=== PATIENT | male | born 1950 | race Caucasian/White ===

== ENCOUNTER 2018-09-03 18:39 | Emergency (ER) | payer MEDICARE, OTHER ==
[~2018-09-03] VITALS: Ht 170.2 cm; Wt 80.1 kg
[~2018-09-03 18:39] MED LIST: MAA5
[2018-09-03 18:44] VITALS: Ht 170.2 cm; Wt 80.1 kg
[2018-09-03] MEDS ORDERED: METO-448 PO (20:41)
[2018-09-03] MEDS ORDERED: LEVO100T8 PO (20:41)
[2018-09-03] MEDS ORDERED: HYDR5TAB PO (20:42)
[2018-09-03] MEDS ORDERED: LATA2.5D2 BOTH EYES (20:43)
[2018-09-03] MEDS ORDERED: morphine 4 MG/ML VIAL IV STA (20:51)
[2018-09-03] MEDS ORDERED: SOD CHLORIDE 0.9% 500 ML IV STA (20:51)
--- NOTE | 2018-09-03 23:26 | ERD ---
ER Documentation Chief Complaint Chief Complaint right flank pain x 4 days HPI 68-year-old male with a history of kidney stones presenting with right-sided flank pain that has been constant for the past 4 days. He describes it as a dull pain, 6 out of 10, nonradiating. Today he started having some dysuria and hematuria as well. No alleviating or exacerbating factors. No nausea, vomiting, fever, chills ROS All systems reviewed and are negative except as per history of present illness. Medications Home Meds Reported Medications Latanoprost (Latanoprost) 2.5 Ml Drops, 1 DROP BOTH EYES QHS, #1 BOTTLE 09/03/18 Hydrocortisone* (Cortef*) 5 Mg Tab, 10 MG PO DAILY, #120 TAB 09/03/18 Levothyroxine Sodium* (Levothyroxine Sodium*) 100 Mcg Tablet, 100 MCG PO BEFORE BREAKFAST, #30 TAB 09/03/18 Metoprolol Tartrate* (Lopressor*) 25 Mg Tab, 50 MG PO BID, #60 TAB 09/03/18 Discontinued Reported Medications Al Hydroxide/Mg Hydroxide (Maalox) 148 Ml Susp 09/19/09 Allergies Allergies: Coded Allergies: No Known Allergies (Verified Allergy, Mild, 09/03/18) PMhx/Soc History of Surgery: Yes (brain sx, cholecystectomy) Hx Neurological Disorder: No Hx Respiratory Disorders: No Hx Cardiac Disorders: No Hx Miscellaneous Medical Probl: Yes (HTN, kidney stones) Hx Alcohol Use: No Hx Substance Use: No Hx Tobacco Use: No Smoking Status: Never smoker FmHx Family History: No diabetes Physical Exam Vitals Vital Signs Date Temp Pulse Resp B/P (MAP) Pulse Ox O2 O2 Flow FiO2 Time Delivery Rate 09/03/18 97.1 65 20 133/65 99 Room Air 23:41 (87) 09/03/18 62 18 133/71 99 Room Air 22:32 (91) 09/03/18 97.6 62 18 138/76 100 18:44 (96) Physical Exam Const: No acute distress Head: Atraumatic Eyes: Normal Conjunctiva ENT: Normal External Ears, Nose and Mouth. Neck: Full range of motion. No meningismus. Resp: Clear to auscultation bilaterally Cardio: Regular rate and rhythm, no murmurs Abd: Soft, non tender, non distended. No McBurney's point tenderness. No rebound or guarding. Normal bowel sounds Skin: No petechiae or rashes Back: No midline tenderness. Mild right CVA tenderness. Ext: No cyanosis, or edema Neur: Awake and alert Psych: Normal Mood and Affect Result Diagram: 09/03/18200709/03/182007 Results 24 hrs Laboratory Tests Test 09/03/18 20:08 09/03/18 20:15 White Blood Count 5.4 10^3/ul Red Blood Count 3.89 10^6/ul Hemoglobin 12.2 g/dl Hematocrit 35.2 % Mean Corpuscular Volume 90.5 fl Mean Corpuscular Hemoglobin 31.4 pg Mean Corpuscular Hemoglobin Concent 34.7 g/dl Red Cell Distribution Width 12.3 % Platelet Count 206 10^3/UL Mean Platelet Volume 10.3 fl Immature Granulocytes % 0.200 % Neutrophils % 45.1 % Lymphocytes % 38.9 % Monocytes % 9.6 % Eosinophils % 5.5 % Basophils % 0.7 % Nucleated Red Blood Cells % 0.0 /100WBC Immature Granulocytes # 0.010 10^3/ul Neutrophils # 2.5 10^3/ul Lymphocytes # 2.1 10^3/ul Monocytes # 0.5 10^3/ul Eosinophils # 0.3 10^3/ul Basophils # 0.0 10^3/ul Nucleated Red Blood Cells # 0.0 10^3/ul Sodium Level 137 mmol/L Potassium Level 4.2 mmol/L Chloride Level 99 mmol/L Carbon Dioxide Level 27 mmol/L Anion Gap 11 Blood Urea Nitrogen 23 mg/dl Creatinine 0.93 mg/dl Est Glomerular Filtrat Rate mL/min > 60 mL/min Glucose Level 81 mg/dl Calcium Level 9.8 mg/dl Bedside Urine pH (LAB) 5.5 Bedside Urine Protein (LAB) Negative Bedside Urine Glucose (UA) Negative Bedside Urine Ketones (LAB) Negative Bedside Urine Blood 1+ Bedside Urine Nitrite (LAB) Negative Bedside Urine Leukocyte Esterase (L Negative Current Medications Medications Dose Sig/Kiya Start Time Status Last (Trade) Ordered Route PRN Stop Time Admin Dose Reason Admin Sodium 500 ml @ Q1H STAT 09/03/18 DC 09/03/18 Chloride 500 mls/hr IV 20:51 21:10 09/03/18 21:50 Morphine 4 mg ONCE STAT 09/03/18 DC 09/03/18 Sulfate IV 20:51 21:10 (morphine) 09/03/18 20:53 Procedures/MDM EMERGENT LABS AND DIAGNOSTIC STUDIES: Lab Results above were reviewed and interpreted by me. CBC: no anemia or evidence of infection BMP: No evidence of electrolyte abnormality, renal failure, hypoglycemia Urine dip shows no evidence of infection, 1+ blood noted Radiology Results as interpreted by Radiology below were reviewed by Alejo Colin MD: CT abdomen and pelvis shows 2 nonobstructing kidney stones in the right kidney with no evidence of ureterolithiasis or pyelonephritis. No acute abnormalities noted. Initial Nursing notes reviewed. Previous Medical Records requested via the Electronic Health Record. EMERGENCY DEPARTMENT COURSE / MEDICAL DECISION MAKING: Patient is presenting with right flank pain for 4 days of unknown etiology. Workup is not consistent with pyelonephritis or obstructing kidney stone. CT scan did not show any other acute abnormalities. Patient is afebrile and hemodynamically stable. He feels much better after pain medication given here. I discussed his results with him and explained to him that the cause of his pain is not very clear at this time. However he was encouraged to return for any worsening symptoms and advised to follow-up with his primary care doctor within the next 2 days. All questions were answered. Patient's blood pressure was elevated (>120/80) but appears stable without evidence of hypertensive emergency or urgency. The patient was counseled about the risks of hypertension and urged to pursue outpatient monitoring and therapy within a week with their primary care physician. Departure Diagnosis: Primary Impression: Flank pain Condition: Stable Patient Instructions: Flank Pain, Uncertain Cause Referrals: DOCTOR,NOT ON STAFF (PCP) KARON COLIN MD Sep 03, 2018 23:26
[2018-09-03 23:41] VITALS: BP 133/65; PULSE 65; RESP 20
== END 2018-09-03 23:45 | disposition home or self-care (01) ==
LOC: E/R 18:39
DX: R10.9 Unspecified abdominal pain (principal); I10 Essential (primary) hypertension
CPT/HCPCS: 36415; 74176; 80048; 81003; 85025; 96374; 99285; J2270; J7040